=== PATIENT | male | born 1955 | race Caucasian/White ===

== ENCOUNTER 2020-12-20 08:31 | Day surgery (SDC) | payer MEDICARE, BC ==
[2020-12-20] VITALS (8 sets, daily range): BP systolic 105–120; BP diastolic 59–75
[~2020-12-20] VITALS: Ht 170.2 cm; Wt 95.1 kg
[~2020-12-20 08:31] MED LIST: ALLO100T PO; ASPI-611 PO; CARV-49 PO; CARV-50 PO; CHOL100044 PO; COU4T PO; ESCI-8 PO; EZET1TAB33 PO; FENO48TA10 PO; FOLI1TAB16 PO; FURO40TA4 PO; WARF3TAB PO; [UNRECOGNIZED DRUG - OTHER]
[2020-12-20] MEDS ORDERED: albumin 25% 100mL bottle x 1 IV PRN (09:10)
[2020-12-20] MEDS ORDERED: APIX5TAB3 PO (09:11)
[2020-12-20] MEDS ORDERED: PEMB100V (09:11)
[2020-12-20] MEDS ORDERED: FENO45CA PO (09:12)
[2020-12-20] MEDS ORDERED: SYN0.088T PO (09:12)
[2020-12-20] MEDS ORDERED: ZOLP5TAB2 PO (09:12)
== END 2020-12-20 11:35 | disposition home or self-care (01) ==
LOC: SSTAY O 08:31
PROVIDERS: ATTEND Preventive Medicine Aerospace Medicine
DX: R18.8 Other ascites (principal); E11.9 Type 2 diabetes mellitus without complications; I10 Essential (primary) hypertension; I25.10 Atherosclerotic heart disease of native coronary artery without angina pectoris; I48.91 Unspecified atrial fibrillation; Z85.528 Personal history of other malignant neoplasm of kidney; Z79.899 Other long term (current) drug therapy; Z95.0 Presence of cardiac pacemaker; Z95.1 Presence of aortocoronary bypass graft; Z90.5 Acquired absence of kidney; Z79.01 Long term (current) use of anticoagulants; Z79.82 Long term (current) use of aspirin
CPT/HCPCS: 49083; P9047; 88108; 88305

== ENCOUNTER 2021-01-21 07:11 | Day surgery (SDC) | payer MEDICARE, BC ==
[2021-01-21] VITALS (8 sets, daily range): BP systolic 104–136; BP diastolic 61–81
[~2021-01-21] VITALS: Ht 165.1 cm; Wt 100.2 kg
[~2021-01-21 07:11] MED LIST changes: +APIX5TAB3 PO; -COU4T PO; +FENO45CA PO; +PEMB100V; +SYN0.088T PO; -WARF3TAB PO; +ZOLP5TAB2 PO
[2021-01-21] MEDS ORDERED: albumin 25% 100mL bottle x 1 IV PRN (07:35)
[2021-01-21] MEDS ORDERED: LIDOcaine 1% 30ml preserv. free vial SQ STA (08:01)
[2021-01-21] MEDS ORDERED: dextrose 50%-water 50ml dispensing syringe IV ONE (19:13)
== END 2021-01-21 10:05 | disposition home or self-care (01) ==
LOC: SSTAY O 07:11
PROVIDERS: ATTEND Radiology Vascular & Interventional Radiology
DX: R18.8 Other ascites (principal); R14.0 Abdominal distension (gaseous); I48.91 Unspecified atrial fibrillation; I25.10 Atherosclerotic heart disease of native coronary artery without angina pectoris; I10 Essential (primary) hypertension; E11.9 Type 2 diabetes mellitus without complications; Z85.528 Personal history of other malignant neoplasm of kidney; Z95.1 Presence of aortocoronary bypass graft; Z95.0 Presence of cardiac pacemaker; Z90.5 Acquired absence of kidney; Z98.890 Other specified postprocedural states; Z79.899 Other long term (current) drug therapy; Z79.01 Long term (current) use of anticoagulants; Z79.82 Long term (current) use of aspirin
CPT/HCPCS: 49083; P9047

== ENCOUNTER 2021-02-05 07:47 | Day surgery (SDC) | payer BC, MEDICARE, OTHER ==
[~2021-02-05] VITALS: Ht 170.2 cm; Wt 95.4 kg
[2021-02-05] VITALS (9 sets, daily range): BP systolic 101–124; BP diastolic 62–87
[~2021-02-05 07:47] MED LIST changes: -CARV-50 PO; -FENO45CA PO; +FENO45CA2 PO; -PEMB100V; -[UNRECOGNIZED DRUG - OTHER]
[2021-02-05] MEDS ORDERED: TRAZ-251 PO (08:05)
[2021-02-05] MEDS ORDERED: LIDOcaine 1% 30ml preserv. free vial SQ STA (08:08)
[2021-02-05] MEDS ORDERED: albumin 25% 100mL bottle x 1 IV PRN (08:15)
== END 2021-02-05 11:35 | disposition home or self-care (01) ==
LOC: SSTAY O 07:47
PROVIDERS: ATTEND Radiology Vascular & Interventional Radiology
DX: R18.8 Other ascites (principal); R14.0 Abdominal distension (gaseous); I48.91 Unspecified atrial fibrillation; I10 Essential (primary) hypertension; E11.9 Type 2 diabetes mellitus without complications; I25.10 Atherosclerotic heart disease of native coronary artery without angina pectoris; Z85.528 Personal history of other malignant neoplasm of kidney; Z95.1 Presence of aortocoronary bypass graft; Z95.0 Presence of cardiac pacemaker; Z90.5 Acquired absence of kidney; Z98.890 Other specified postprocedural states; Z79.01 Long term (current) use of anticoagulants; Z79.899 Other long term (current) drug therapy
CPT/HCPCS: 49083; P9047